=== PATIENT | male | born 1955 | race Caucasian/White ===

== ENCOUNTER → 2016-07-04 | Outpatient (CLI) | payer BC ==
--- NOTE | 2016-07-04 12:54 | XR ---
EXAMINATION TYPE: XR abdomen 1V DATE OF EXAM: 07/04/2016 12:49 PM HISTORY: Pain Comparison: None.Single KUB is submitted for interpretation. Findings: Right renal calculi: None Visualized. Right ureteral calculi: 3.7 mm calculus at the expected region of the right UVJ. Left renal calculi: None Visualized. Left ureteral calculi: None Visualized. Pelvic calcifications: None Visualized. Bowel gas pattern is unremarkable. No free air. No mass effects. IMPRESSION: 1. 3.7 mm calculus at the expected region of the right UVJ.
== END | disposition home or self-care (01) ==
LOC: RADXRMAIN 12:31
PROVIDERS: ATTEND Urology
DX: N20.1 Calculus of ureter (principal)
CPT/HCPCS: 74000

== ENCOUNTER → 2016-07-15 | Outpatient (CLI) | payer BC ==
--- NOTE | 2016-07-15 15:59 | XR ---
EXAMINATION TYPE: XR KUB DATE OF EXAM: 07/15/2016 11:30 AM CLINICAL DATA: 52-year-old male follow-up right renal stone, [facility] COMPARISON: 07/04/2016 FINDINGS: Nonobstructive bowel gas pattern. [id number] stool particularly in the right hemicolon. No defi nite suspicious calcification is radiographically apparent. IMPRESSION: No radiographically apparent suspicious calcification. Previously seen density in the right hemipelvi s is no longer apparent and may have passed.
== END | disposition home or self-care (01) ==
LOC: RADXRMAIN 11:21
PROVIDERS: ATTEND Physician Assistant
DX: N20.1 Calculus of ureter (principal)
CPT/HCPCS: 74000